=== PATIENT | male | born 1940 | race Caucasian/White ===

== ENCOUNTER 2024-08-02 14:52 | Emergency (ER) | payer OTHER ==
[~2024-08-02] VITALS: Ht 177.8 cm; Wt 82.0 kg
[2024-08-02 14:55] VITALS: O2SAT 98
[2024-08-02] MEDS: LIDOCAINE 5% PATCH TOP ONE (15:45)
[2024-08-02] MEDS: IBUPROFEN 400MG TABLET PO ONE (16:30)
[2024-08-02] MEDS ORDERED: IBUP-2028 MT (18:15)
[2024-08-02] MEDS ORDERED: LIDO700A30 TP (18:15)
[2024-08-02 18:33] VITALS: BP 143/63; PULSE 65; RESP 16; TEMP 36.9; O2SAT 98
== END 2024-08-02 18:34 | disposition home or self-care (01) ==
LOC: ER 14:52
DX: S60.512A Abrasion of left hand, initial encounter (principal); M25.512 Pain in left shoulder; M25.511 Pain in right shoulder; E11.9 Type 2 diabetes mellitus without complications; E78.00 Pure hypercholesterolemia, unspecified; I10 Essential (primary) hypertension; R51.9 Headache, unspecified; W19.XXXA Unspecified fall, initial encounter; Y93.89 Activity, other specified; Y92.89 Other specified places as the place of occurrence of the external cause; Y99.8 Other external cause status
CPT/HCPCS: 73030; 99284